=== PATIENT | female | born 1985 | race Caucasian/White ===

== ENCOUNTER 2018-10-03 09:04 | Inpatient (IN) | payer MEDICAID ==
[2018-10-03] MEDS ORDERED: METHYLERGONOVINE 0.2 MG INJ IM ×2 (10:00→12:30)
[2018-10-03] MEDS ORDERED: CEFAZOLIN 2 GM/50 ML (PMX) 50 ML IVPB ×2 (10:00→12:30)
[2018-10-03] MEDS ORDERED: OXYTOCIN 30 UNITS/LR 500 ML IV ×4 (10:00→12:30)
[2018-10-03] MEDS ORDERED: MISOPROSTOL 200 MCG TAB PR ×2 (10:00→12:30)
[2018-10-03] MEDS ORDERED: CARBOPROST 250 MCG INJ IM ×2 (10:00→12:30)
[2018-10-03] MEDS: LACTATED RINGER'S 1,000 ML IV ×3 (10:13→18:00)
[2018-10-03 10:25] LABS: ADD MAN DIFF? NO
[2018-10-03 10:27] LABS: ABNORMAL IP MESSAGE 1; BASOPHIL # 0.1 10^3/ul (0.0-0.1); BASOPHILS % 0.7 % (0.0-2.0); EOSINOPHILS # 0.2 10^3/ul (0.0-0.5); EOSINOPHILS % 2.1 % (0.0-7.0); HEMATOCRIT 40.6 % (37.0-47.0); HEMOGLOBIN 13.2 g/dl (12.0-16.0); LYMPHOCYTES % 24.3 % (15.0-51.0); MEAN CORPUSCULAR HEMOGLOBIN 30.6 pg (29.0-33.0); MEAN CORPUSCULAR HGB CONC 32.5 g/dl (32.0-37.0); MEAN CORPUSCULAR VOLUME 94.2 fl (82.0-101.0); MONOCYTE # 0.6 10^3/ul (0.3-0.9); MONOCYTES % 7.3 % (0.0-11.0); NEUTROPHIL # 5.4 10^3/ul (1.6-7.5); PLATELET COUNT 148 10^3/UL (140-415); RED BLOOD COUNT 4.31 10^6/ul (4.20-5.40); RED CELL DISTRIBUTION WIDTH 12.3 % (11.5-14.5)
[2018-10-03 10:27] LABS: WHITE BLOOD COUNT 8.2 10^3/ul (4.8-10.8)
[2018-10-03 10:28] LABS: POSITIVE DIFF @See below
[2018-10-03] MEDS: FAMOTIDINE 20 MG INJ IV (10:37)
[2018-10-03] MEDS: METOCLOPRAMIDE 10 MG INJ IV (10:37)
[2018-10-03] MEDS: CITRIC ACID/NA CITRATE 30 ML CUP PO (10:37)
[2018-10-03 10:46] LABS: INR 0.88; PT RATIO 0.9
[2018-10-03 10:47] LABS: PARTIAL THROMBOPLASTIN TIME 25.7 Sec (23.0-35.0)
[2018-10-03] MEDS ORDERED: morphine SULFATE/PF (10 MG/10 ML) INJ (11:00)
[2018-10-03 11:21] LABS: HEPATITIS B SURFACE ANTIGEN NEGATIVE (NEGATIVE)
[2018-10-03] MEDS ORDERED: PHENYLephrine (100 MCG/ML) 10ML SYG (11:24)
[2018-10-03] MEDS ORDERED: EPHEDrine 25 MG/5 ML SYG (11:24)
[2018-10-03] MEDS ORDERED: ONDANSETRON 4 MG INJ (11:28)
[2018-10-03] MEDS ORDERED: ONDANSETRON 4 MG INJ IV ×2 (11:30→14:00)
[2018-10-03] MEDS ORDERED: HYDROmorphONE 1 MG/5 ML IV SYRINGE IV ×3 (11:30)
[2018-10-03] MEDS ORDERED: MEPERIDINE 25 MG INJ IV (11:30)
[2018-10-03] MEDS ORDERED: FENTAnyl 50 MCG/ML VIAL IV ×3 (11:30)
[2018-10-03] MEDS ORDERED: PROCHLORPERAZINE 10 MG INJ IV (11:30)
[2018-10-03] MEDS ORDERED: KETOROLAC 30 MG INJ IV (11:30)
[2018-10-03] MEDS ORDERED: DIPHENHYDRAMINE 50 MG INJ IV ×2 (11:30→14:00)
[2018-10-03] MEDS ORDERED: NACL 0.9% 3 ML SYG IV (12:30)
[2018-10-03] MEDS ORDERED: OXYCODONE/ACETAMINOPHEN (5/325) TAB PO ×2 (12:30)
[2018-10-03] MEDS: OXYTOCIN 30 UNITS/LR 500 ML IV (13:29)
[2018-10-03] MEDS ORDERED: HYDROmorphONE 0.5 MG/0.5 ML SYG IV ×2 (14:00)
[2018-10-03] MEDS ORDERED: ZOLPIDEM 5 MG TAB PO (14:00)
[2018-10-03] MEDS ORDERED: NALOXONE (0.4 MG/ML) INJ IV (14:00)
[2018-10-03] MEDS ORDERED: IBUPROFEN 600 MG TAB PO (18:00)
[2018-10-03] MEDS: KETOROLAC 30 MG INJ IV (18:50)
[2018-10-03] MEDS: CEFAZOLIN 2 GM/50 ML (PMX) 50 ML IVPB (20:05)
[2018-10-03 20:30] LABS: RAPID PLASMA REAGIN NONREACTIVE (NR)
[2018-10-03] MEDS: SENNA/DOCUSATE NA (8.6MG/50MG) TAB PO (21:00)
[2018-10-04] MEDS: LACTATED RINGER'S 1,000 ML IV ×2 (00:46→10:00)
[2018-10-04] MEDS: CEFAZOLIN 2 GM/50 ML (PMX) 50 ML IVPB ×2 (04:35→11:48)
[2018-10-04] MEDS: KETOROLAC 30 MG INJ IV (05:27)
[2018-10-04 08:25] LABS: ADD MAN DIFF? NO
[2018-10-04 08:29] LABS: BASOPHIL # 0.1 10^3/ul (0.0-0.1); BASOPHILS % 0.6 % (0.0-2.0); EOSINOPHILS % 0.4 % (0.0-7.0); HEMATOCRIT 33.6 % (37.0-47.0); LYMPHOCYTES # 1.7 10^3/ul (0.8-2.9); LYMPHOCYTES % 18.9 % (15.0-51.0); MEAN CORPUSCULAR HEMOGLOBIN 30.8 pg (29.0-33.0); MEAN CORPUSCULAR HGB CONC 32.7 g/dl (32.0-37.0); MEAN CORPUSCULAR VOLUME 94.1 fl (82.0-101.0); MEAN PLATELET VOLUME 12.9 fl (7.4-10.4); MONOCYTE # 0.7 10^3/ul (0.3-0.9); NEUTROPHIL # 6.5 10^3/ul (1.6-7.5); NEUTROPHILS % 71.5 % (39.0-77.0); PLATELET COUNT 128 10^3/UL (140-415); RED BLOOD COUNT 3.57 10^6/ul (4.20-5.40); RED CELL DISTRIBUTION WIDTH 12.5 % (11.5-14.5)
[2018-10-04 08:29] LABS: WHITE BLOOD COUNT 9.1 10^3/ul (4.8-10.8)
[2018-10-04] MEDS: SENNA/DOCUSATE NA (8.6MG/50MG) TAB PO ×2 (09:14→20:38)
[2018-10-04] MEDS: IBUPROFEN 600 MG TAB PO ×3 (11:49→23:43)
[2018-10-05] MEDS: IBUPROFEN 600 MG TAB PO ×4 (05:32→23:39)
[2018-10-05] MEDS: SENNA/DOCUSATE NA (8.6MG/50MG) TAB PO ×2 (09:00→21:02)
[2018-10-05] MEDS: LANOLIN HPA 1 PKT TOP (18:24)
[2018-10-06] MEDS: IBUPROFEN 600 MG TAB PO ×2 (05:43→12:44)
[2018-10-06] MEDS: SENNA/DOCUSATE NA (8.6MG/50MG) TAB PO (10:13)
[2018-10-06] MEDS: LANOLIN HPA 1 PKT TOP (12:56)
== END 2018-10-06 16:14 | disposition home or self-care (01) | DRG 788 ==
LOC: OBT 09:04 → L-D 09:05 → OBT 09:45 → L-D 09:45 → PP1 14:29
PROVIDERS: Obstetrics & Gynecology
PROC: 10D00Z1 Extraction of Products of Conception, Low, Open Approach (ICD-10-PCS; principal; 2018-10-03 10:30)
DX: O65.5 Obstructed labor due to abnormality of maternal pelvic organs (principal); O34.211 Maternal care for low transverse scar from previous cesarean delivery; Z3A.37 37 weeks gestation of pregnancy; Z37.0 Single live birth
CPT/HCPCS: 85025; 85610; 85730; 86592; 86850; 86900; 86901; 87340; 99464